=== PATIENT | female | born 1930 | race Caucasian/White ===

== ENCOUNTER 2018-06-12 12:26 | Outpatient (REF) | payer MEDICARE ==
[~2018-06-12] VITALS: Ht 165.1 cm; Wt 74.8 kg
[~2018-06-12 12:26] MED LIST: AMLODIPINE5 MG PO; BAYER ASPIRIN E81 MG PO; BAYER LOW81 MG OR; METFORMIN500 MG PO; METOPROLOL25 M1 OR; PLAVIX75 MG PO; PREVACID30 M1 PO; ZESTRIL10 MG PO; ZESTRIL20 MG OR; ZOCOR20 MG OR
[2018-06-12 15:29] VITALS: BP 143/68
== END 2018-06-12 16:58 | disposition home or self-care (01) ==
LOC: INF 12:26
PROVIDERS: ATTEND Internal Medicine
DX: D50.9 Iron deficiency anemia, unspecified (principal); N18.3 Chronic kidney disease, stage 3 (moderate)
CPT/HCPCS: Q0138

== ENCOUNTER 2018-06-26 12:51 | Outpatient (REF) | payer MEDICARE ==
[2018-06-26 13:36] VITALS: BP 136/59
== END 2018-06-26 14:32 | disposition home or self-care (01) ==
LOC: INF 12:51
PROVIDERS: ATTEND Internal Medicine
DX: D50.9 Iron deficiency anemia, unspecified (principal); N18.3 Chronic kidney disease, stage 3 (moderate)
CPT/HCPCS: Q0138